=== PATIENT | male | born 1950 | race Caucasian/White ===

== ENCOUNTER → 2020-05-16 | Outpatient (CLI) | payer MEDICARE, SELFPAY | END | disposition home or self-care (01) | LOC: LABSPEC 14:34 | PROVIDERS: PCP Internal Medicine; Referring Provider Family Medicine; Visit Provider Family Medicine | DX: Z03.818 Encounter for observation for suspected exposure to other biological agents ruled out (principal) | CPT/HCPCS: 87635; U0003 ==

== ENCOUNTER → 2020-05-30 13:11 | Outpatient (CLI) | payer MEDICARE, SELFPAY | PROVIDERS: Referring Provider Family Medicine; Visit Provider Family Medicine | DX: Z11.59 Encounter for screening for other viral diseases (principal) | CPT/HCPCS: 87635; U0003 ==

== ENCOUNTER → 2020-06-13 | Outpatient (CLI) | payer MEDICARE, SELFPAY | END | disposition home or self-care (01) | LOC: LABSPEC 12:41 | PROVIDERS: Referring Provider Family Medicine; Visit Provider Family Medicine | DX: Z03.818 Encounter for observation for suspected exposure to other biological agents ruled out (principal) | CPT/HCPCS: 87635; U0003 ==

== ENCOUNTER → 2020-06-27 | Outpatient (CLI) | payer MEDICARE, SELFPAY | END | disposition home or self-care (01) | LOC: LABSPEC 10:52 | PROVIDERS: Referring Provider Family Medicine; Visit Provider Family Medicine | DX: Z03.818 Encounter for observation for suspected exposure to other biological agents ruled out (principal) | CPT/HCPCS: 87635; U0003 ==

== ENCOUNTER → 2020-07-11 | Outpatient (CLI) | payer MEDICARE, SELFPAY | END | disposition home or self-care (01) | LOC: LABSPEC 13:26 | PROVIDERS: Referring Provider Family Medicine; Visit Provider Family Medicine | DX: Z03.818 Encounter for observation for suspected exposure to other biological agents ruled out (principal) | CPT/HCPCS: 87635; U0003 ==

== ENCOUNTER → 2020-10-31 13:49 | Outpatient (CLI) | payer MEDICARE, OTHER, SELFPAY ==
--- NOTE | 2020-10-31 13:53 | CT_ITS ---
STUDY: CT SCAN LOWER EXTREMITY LEFT.VALARIE REASON FOR EXAM: Male, 70 years old. VARUS DEFORMITY, NOT ELSEWHERE CLASSIFIED, L KNEE RADIATION DOSAGE (If Supplied By Facility): CTDIvol = ( 18.07 ) mGy, DLP = ( 1881.66 ) mGycm. Individualized dose optimization techniques were used for this CT.? TECHNIQUE: Multiple axial tomographic images of the left hip, left knee and left ankle joints were obtained. Coronal and sagittal reconstruction were obtained as well. COMPARISON: None. FINDINGS: Imaging of the left hip joint was obtained. Mild degree of joint space narrowing. There is a marked degree of disc space narrowing at the L4-L5 level with a grade 1 anterior listhesis of L4 on L5 with spondylolysis of the pars interarticularis of the L5 vertebrae. Imaging of the knee joint was obtained. There is a moderate to marked degree of medial joint space narrowing. Mild degree of patellofemoral joint space narrowing with degenerative spur formation. Imaging of the ankle joint was obtained. The ankle mortise is intact. No significant abnormality is seen. CT/Extremity Lower without Contra IMPRESSION: Moderate to marked degree of the medial joint space narrowing of the knee joint as well as mild degree of patellofemoral degenerative changes. Electronically Signed: Uzair Still MD at 14:42 EST , Service support ,
== END ==
PROVIDERS: PCP Internal Medicine; Referring Provider Specialist; Visit Provider Specialist
DX: M21.162 Varus deformity, not elsewhere classified, left knee (principal)
CPT/HCPCS: 73700

== ENCOUNTER → 2020-11-07 09:23 | Outpatient (CLI) | payer MEDICARE, OTHER, SELFPAY ==
--- NOTE | 2020-11-07 09:26 | EKG12_ITS ---
Test Reason : PREOP Blood Pressure : / mmHG Vent. Rate : 084 BPM Atrial Rate : 084 BPM P-R Int : 162 ms QRS Dur : 092 ms QT Int : 378 ms P-R-T Axes : 070 044 051 degrees QTc Int : 446 ms Normal sinus rhythm Low voltage QRS Borderline ECG Confirmed by SANTIAGO LINDSEY, ROSIO ([id number]), editorial project manager MARTIN HINOJOSA ([id number]) on 11/11/2020 11:01:44 A M Referred By: Nitish Martinez Confirmed By:EVE HENDERSON MD
[2020-11-07 10:05] LABS: Absolute Lymphocyte Count 1.07 X10^3/uL (0.83-4.51); Absolute Neutrophil Count 3.9 X10^3/uL (2.0-7.7); Basophil# 0.02 X10^3/uL; Basophil% 0.4 % (0-1); Eosinophil# 0.12 X10^3/uL; Eosinophils% 2.2 % (0-5); Hemoglobin 14.2 g/dL (13.0-16.5); Lymphocyte # 1.07 X10^3/ul (4.0); Lymphocyte % 19.3 % (19-41); Mean Corpuscular Hgb 29.2 pg (27.0-32.0); Mean Corpuscular Volume 88.3 fL (80-94); Monocyte# 0.45 X10^3/uL; Monocyte% 8.1 % (0-10); NRBC Flagged by Analyzer 0 % (0-5); Neutrophil # 3.86 X10^3/uL (2.7-7.7); Neutrophil % 69.6 % (47-70); Platelet Count 198 K/mm3 (150-450); RBC Distribution Width CV 14.6 % (11.6-14.6); RBC Distribution Width SD 46.6 fl (35.1-43.9); Red Blood Count 4.87 M/mm3 (4.6-6.2); White Blood Count 5.5 K/mm3 (4.4-11.0)
[2020-11-07 10:48] LABS: Anion Gap 3 (5-15); BUN 20 mg/dL (7-18); BUN/Creat Ratio 16.3 RATIO (10-20); Calcium,Total 8.9 mg/dL (8.5-10.1); Chloride 106 mmol/L (98-107); Creatinine, Serum 1.23 mg/dL (0.70-1.30); EST Glomerular Filtration Rate 62 mL/min (>60); Est Glom Filt Rate - Afr Amer 75 mL/min (>60); Glucose 88 mg/dL (74-106); Potassium 3.5 mmol/L (3.5-5.1); Sodium Level 141 mmol/L (136-145)
== END ==
PROVIDERS: PCP Internal Medicine; Referring Provider Physician Assistant Surgical; Visit Provider Physician Assistant Surgical
DX: Z01.810 Encounter for preprocedural cardiovascular examination (principal); Z01.818 Encounter for other preprocedural examination
CPT/HCPCS: 36415; 80048; 85025; 93005

== ENCOUNTER → 2020-12-06 14:28 | Outpatient (CLI) | payer MEDICARE, OTHER, SELFPAY ==
--- NOTE | 2020-12-06 14:30 | VDLE_ITS ---
Reason For Study: Pain RIGHT LEFT CFV is compressible, spontaneous, phasic, GSV is normal. competent and demonstrates normal CFV is compressible, spontaneous, phasic, augmentation. competent, and demonstrates normal Procedure augmentation. Exam performed in department. FV is compressible, spontaneous, phasic, This is a venous duplex using B-mode, color competent and demonstrates normal flow and spectral Doppler. augmentation. A preliminary report was called and/or faxed POP V is compressible, spontaneous, phasic, to Dr. Valiente. competent and demonstrates normal augmentation. T/P Trunk is compressible. PTV is compressible. LT PerV is compressible. VL/Venous Duplex US, Unilateral Interpretation Summary There is no evidence of left lower extremity deep vein thrombosis. Normal flow patterns right common femoral vein Ordering Physician: Chaitanya Valiente Referring Physician: Jaycob Gruber Performed By: Yaima oHrta RDCS, RVT
== END ==
PROVIDERS: PCP Internal Medicine; Referring Provider Specialist; Visit Provider Specialist
DX: M79.662 Pain in left lower leg (principal)
CPT/HCPCS: 93971

== ENCOUNTER 2025-07-11 10:37 | Emergency (ER) | payer MEDICARE, OTHER, SELFPAY ==
[2025-07-11 10:38] VITALS: BP 152/92; PULSE 74; RESP 18; TEMP 37.2; O2SAT 100; BMI 23.7
[2025-07-11 11:54] VITALS: BP 134/84; PULSE 65; RESP 18; O2SAT 100
--- NOTE | 2025-07-11 11:58 | ED.RN ---
had episode of numbness to RLE in triage but pt reports was from crossing legs. denies now.
--- NOTE | 2025-07-11 12:11 | CT_ITS ---
PROCEDURE: BRAIN/HEAD WITHOUT CONTRAST 07/11/2025 REASON FOR EXAM: HEADACHE TECHNIQUE: Procedure Code: CTBR Modality: CT Procedure: BRAIN/HEAD WITHOUT CONTRAST Coronal and Sagittal reconstruction series were provided. One or more dose reduction techniques were used (e.g., Automated exposure control, adjustment of the mA and/or kV according to patient size, use of iterative reconstruction technique. RADIATION DOSE SUMMARY: CTDlvol: 44.99 mGy DLP: 796.11 mGycm COMPARISON: None FINDINGS: Brain: Within normal limits for age. Tiny lucency in the insular cortex of the right temporal lobes suggestive of focal lacune. The age of which can not be determined at this time. CSF Spaces: Mild generalized cerebral atrophy Sinuses/Mastoids: Clear at visualized levels Bones: Unremarkable CT/Brain/Head without Contrast IMPRESSION: Tiny lacune seen in the insular cortex of the right temporal lobe posteriorly. The age of this can not be determined since there are no prior study available for comparison. Reading Location: [place] [id number]
--- NOTE | 2025-07-11 12:11 | EKG12_ITS ---
Test Reason : Blood Pressure : */* mmHG Vent. Rate : 68 BPM Atrial Rate : 75 BPM P-R Int : 188 ms QRS Dur : 90 ms QT Int : 416 ms P-R-T Axes : 66 1 18 degrees QTcB Int : 442 ms Sinus rhythm with Premature atrial complexes Otherwise normal ECG Confirmed by SANTIAGO LINDSEY, ROSIO ([id number]), video editor WHITNEY ROMERO ([id number]) on 07/16/2025 8:24:16 AM Referred By: Confirmed By: ROSIO HENDERSON MD
--- NOTE | 2025-07-11 12:11 | CT_ITS ---
PROCEDURE: CTA HEAD AND NECK W/ CONTRAST 07/11/2025 REASON FOR EXAM: HEADACHE TECHNIQUE: Procedure Code: CTCTA.HDNCK Modality: CT Procedure: CTA HEAD AND NECK W/ CONTRAST Multiplanar Sagittal and Coronal images were obtained. 3D post processing was performed CONTRAST: Isovue 3 7 VOLUME: 100 mL One or more dose reduction techniques were used (e.g., Automated exposure control, adjustment of the mA and/or kV according to patient size, use of iterative reconstruction technique). RADIATION DOSE SUMMARY: CTDlvol: 25.3 mGy DLP: 703.92 mGycm COMPARISON: None FINDINGS: Aortic Arch: Normal size and branching pattern. Mild atherosclerotic plaque. Brachiocephalic and Subclavians: Unremarkable RIGHT Carotid: Right CCA: Unremarkable. Right ICA: Unremarkable. Right ECA: Unremarkable. LEFT Carotid: Left CCA: Unremarkable. Left ICA: Unremarkable. Left ECA: Unremarkable. Vertebrals: Codominant. Arise from the subclavians. Both vertebrals form the basilar. RIGHT Vertebral: Unremarkable. LEFT Vertebral: Unremarkable. Anatomy: [place] anatomy is normal. Aneurysm or avm: No intracranial aneurysms or large vascular malformations are identified. Anterior cerebral arteries: Unremarkable: Middle cerebral arteries: Unremarkable. Basilar artery: Unremarkable. Posterior cerebral arteries: Unremarkable. Other major branches of the posterior circulation: Unremarkable. Major venous structures: Unremarkable. Other findings: Neck: Lungs: Bones: CT/CTA Head AND Neck W/ Contrast IMPRESSION: Unremarkable examination. Reading Location: [place] [id number]
[2025-07-11] MEDS: 0.9% Normal Saline (1000mL) 1,000 ML 999 ML IV (12:21)
--- NOTE | 2025-07-11 12:38 | EX.ED.DYSGE1 ---
HPI History of Present Illness Chief Complaint: Headache Narrative Narrative: Patient is a 74-year-old male who presents to the emergency department with a chief complaint of headache. He states that this started about 2 days ago and states that he thought about coming in yesterday however his pain got better and then they returned today prompting him to come here for further evaluation management. He states that he is been taking Tylenol and ibuprofen which has helped his symptoms. He states that he has never had a headache like this before and was concerned prompting him here to the emergency department to be further evaluated. He states that the headache came on gradually and progressively worsened. Denies any head injuries or trauma. Denies any blood thinning medications. [facility] Medical History Headache Home Medications Medication Instructions Recorded Last Taken Type NK 07/11/25 Unknown History Allergy/AdvReac Type Severity Reaction Status Date / Time No Known Allergies Allergy Verified 07/11/25 10:38 Social History Smoking Status: Never smoker ROS ROS ED ROS Narrative Constitutional: Denies any fevers, chills complains of headache as noted above Eyes: Denies double vision blurry vision Cardiovascular: Denies chest pain Respiratory: Denies shortness of breath Abdomen: Denies abdominal pain nausea vomit diarrhea : Denies any urine symptoms Neurological: Denies any numbness, weakness, tingling Musculoskeletal: Denies back pain Skin: Denies any rashes or lesions EXAM Physical Exam Narrative Exam Narrative: General: Patient was lying bed rest comfortably did not appear to be acute distress Head: Atraumatic, normocephalic Eyes: PERRL bilaterally, EOMI bilateral, no conjunctival injection noted Neck: Soft, supple, trachea midline Cardiovascular: Regular rate and rhythm Respiratory: Clear to auscultation bilaterally Abdomen: Soft, nondistended, nontender to palpation Extremities: +5/5 strength noted in the bilateral lower extremities Neurological: Patient following commands knew that he was at [facility] year is 2024 NIH is 0 GCS 15 Skin: Warm, dry, tact no rashes or lesions noted Const Vital Signs: 07/11/25 10:38 07/11/25 11:54 Temperature 98.9 F Temperature Source Oral Pulse Rate 74 65 Respiratory Rate 18 18 Blood Pressure 152/92 H 134/84 H Blood Pressure Mean 112 100 Pulse Ox 100 100 Oxygen Delivery Method Room Air Room Air MDM MDM MDM Narrative Medical decision making narrative: Patient is a 74-year-old male who presented to the emergency department with chief complaint of headache. On the differential diagnose includes Melamin to aneurysm, intracranial hemorrhage, tension headache, close headache migraine headache. Once workup is obtained and reviewed he will be reevaluated. Patient given IV fluids Tylenol and Reglan. Patient CBC reviewed showed no evidence of leukocytosis white blood count was noted be 4.5, hemoglobin 13, platelet count of 193. Sodium was 130, potassium low 3.6, creatinine was 1.19. Patient AST and ALT were [address] head brain without contrast showed a tiny lacunar infarct in the insular cortex of the right temporal lobe posteriorly age-indeterminate do not have anything to compare to. Patient CTA head and neck reviewed which showed no evidence of large vessel occlusion. Patient EKG showed sinus rhythm with PACs noted with a rate of 60 bpm CO interval 188 Given that these headaches are worse than his usual with this new finding of a evidence of stroke on his CT scan will discuss case with hospitalist for admission. Patient was evaluated by hospitalist Dr. Wagner and after their discussion patient would prefer to go home at this point in time and follow-up with his doctor in the outpatient setting. Hospitalist will prescribe medications for his headache. They state that it is no longer recommended to do anything for the lacunar infarct per neurology that they have been told in the past. Patient otherwise has no other symptoms and states that his headache is improved after the migraine cocktail given down here in the emergency department. He was advised to return with worsening symptoms or any other concerns he is agreeable this plan as well as significant other at bedside all question concerns answered is discharged home in stable condition Lab Data Labs: Laboratory Results - last 24 hr 07/11/25 11:55 WBC 4.5 RBC 4.37 L Hgb 13.0 Hct 38.2 L MCV 87.4 MCH 29.7 MCHC 34.0 RDW Std Deviation 44.1 H RDW Coeff of Delmy 13.9 Plt Count 193 MPV 8.9 Immature Gran % (Auto) 0.200 Neut % (Auto) 74.2 H Lymph % (Auto) 16.9 L Reeves % (Auto) 7.6 Eos % (Auto) 0.9 Baso % (Auto) 0.2 Absolute Neuts (auto) 3.3 Absolute Lymphs (auto) 0.75 L Nucleated RBC % 0 Sodium 138 Potassium 3.6 Chloride 100 Carbon Dioxide 26.9 Anion Gap 11 BUN 32 H Creatinine 1.19 Estim Creat Clear Calc 54.46 Est GFR (MDRD) Non-Af 64 BUN/Creatinine Ratio 26.5 H Glucose 114 H Calcium 9.1 Total Bilirubin 1.17 AST 17 ALT 13 Alkaline Phosphatase 60 Total Protein 8.6 H Albumin 3.7 Globulin 5.0 H Albumin/Globulin Ratio 0.7 L Radiography Diagnostic Testing: Clinical Impression(s) from Imaging Studies Brain CT 07/11/25 12:11 IMPRESSION: Tiny lacune seen in the insular cortex of the right temporal lobe posteriorly. The age of this can not be determined since there are no prior study available for comparison. Reading Location: [facility] Head/Neck CTA 07/11/25 12:11 IMPRESSION: Unremarkable examination. Reading Location: [facility]1 Discharge Plan Triage Chief Complaint: Headache ED Provider: Jose Fish Dx/Rx/DC Orders Clinical Impression: Headache, Lacunar infarction, History of tremor Prescriptions: No Action NK Primary Care Provider: Jaycob Gruber Referrals: Jaycob Gruber MD [Primary Care Provider, Internal Medicine] Activity Restrictions/Additional Instructions: Follow-up with your doctor in the outpatient setting. Return with worsening symptoms or other concerns. Take prescriptions that were sent to your pharmacy as prescribed for your headache you can also use Tylenol and ibuprofen when you do this you can rotate Tylenol and ibuprofen [id number] taking something every 3 hours for pain max dose Tylenol in 24 hours 4000 mg max dose of ibuprofen in 24 hours 3200 mg. Print Language: Nepali Disposition Disposition: Home, Self Care D/C Safety Score for UGIB Assessment [place] Bleeding Score (GBS): Stratifies upper GI bleeding patients who are "low-risk" and candidates for outpatient management. Sex: Male Hemoglobin, BUN, Recent Vital Signs: Hgb 13.0 g/dL (13.0-16.5) 11/12/25 11:55 BUN 32 mg/dL (4-19) H 07/11/25 11:55 Pulse Rate 65 Blood Pressure 134/84 Total Risk Score: 3 Score Interpretation: Score of 0: A GBS of 0 is a “Low Risk” GI bleed, and is highly sensitive (99.6% in a 2007 retrospective study) for predicting which patients did not require any “medical intervention”: blood transfusion, endoscopy, or surgery. This was confirmed in a 2009 [facility] study where patients with a score of 0 were actually discharged and had no GI bleeding mortality at 6 month followup Score above 0: A GBS greater than zero suggests a “High Risk” GI bleed that is likely to require “medical intervention”: transfusion, endoscopy, or surgery. A higher GBS also correlated with a higher likelihood of needing intervention Scores >/= 6 are associated with >50% risk of needing intervention D/C Safety Score for LGIB Assessment Assessment Tool: Readmission and adverse event risk in patients with acute lower GI bleeding. Age, in years: >/= 70 Sex: Male Hemoglobin and Recent Vital Signs: Hgb 13.0 g/dL (13.0-16.5) 07/11/25 11:55 Pulse Rate 65 07/11/25 11:54 Blood Pressure 134/84 07/11/25 11:54 Probability of safe discharge: 98% Total Risk Score: 3 Score Interpretation: Probability Percentage of safe discharge (absence of rebleeding, blood transfusion, therapeutic intervention, 28 day readmission, or ) Score of 8 or below: Consider discharge, with appropriate precautions. Score of 9 or above: Discharge NOT recommended. Consider admission with further workup and resuscitation as necessary.
[2025-07-11 12:39] LABS: Hematocrit 38.2 % (40-54); Hemoglobin 13.0 g/dL (13.0-16.5); Immature Granulocytes Count 0.010 X10^3/uL (0.0-0.0); Mean Corp Hgb Conc 34.0 g/dL (32-36); Mean Corpuscular Volume 87.4 fL (80-94); Mean Platelet Vol. 8.9 fl (6.2-12.0); NRBC Flagged by Analyzer 0 % (0-5); Platelet Count 193 K/mm3 (150-450); RBC Distribution Width CV 13.9 % (11.6-14.6); RBC Distribution Width SD 44.1 fl (35.1-43.9); Red Blood Count 4.37 M/mm3 (4.6-6.2); White Blood Count 4.5 K/mm3 (4.4-11.0)
[2025-07-11 12:43] LABS: AST(SGOT) 17 U/L (<=37); Alanine Aminotransfer ALT/SGPT 13 U/L (<=46); Albumin, Serum 3.7 g/dL (3.4-4.8); Alkaline Phosphatase 60 U/L (40-129); Anion Gap 11 (5-15); BUN 32 mg/dL (4-19); BUN/Creat Ratio 26.5 RATIO (10-20); Calcium,Total 9.1 mg/dL (7.6-11.0); Carbon Dioxide 26.9 mmol/L (21.0-32.0); Chloride 100 mmol/L (98-108); Estimated Creatinine Clearance 54.46 ml/min (50-250); Globulin 5.0 g/dL (2.2-4.2); Glucose 114 mg/dL (70-99); Potassium 3.6 mmol/L (3.3-5.1)
--- NOTE | 2025-07-11 14:55 | PN.HOSP_ITS ---
Hospitalist Note Patient was seen and examined today at the request of emergency medicine (Dr. Fish), he complained of a headache, headache started approximately 2 days ago and he was taken [id number] medications at home and in fact he took a tramadol that he had at home and this helped. Patient denies any visual disturbances or light sensitivity, he states the headache starts in the back of his occipital area and if he gets severe travels around to the front. He has no history of migraine cephalgia, he does not complain of any speech difficulties or focal weakness. Workup in the emergency room included a CT of the brain which showed a small lacunar infarct age unknown, labs were unremarkable. I examined the patient and he stated that he felt "90% better" since he has had medications in the emergency room. I gave the patient a choice of being placed into observation status overnight and receiving further medications and possibly getting an MRI of the brain or he could go home and I could call in some Fioricet for him until he follows up with his physician next week. Patient's was in the room during the time of my examination and discussion with him. Patient decided that he would like to go home and I discussed this with Dr. Fish and he was okay with this. Fioricet No. 20 1-2 every 6 hours was called into [facility] in [place], patient may take ibuprofen with this if desired. He was instructed to follow-up with his PCP next week.
[2025-07-11 15:01] VITALS: BP 116/72; PULSE 68; RESP 16; TEMP 36.3; O2SAT 98
== END 2025-07-11 15:37 | disposition home or self-care (01) ==
PROVIDERS: Emergency Provider Emergency Medicine; PCP Internal Medicine; Visit Provider Emergency Medicine
DX: R51.9 Headache, unspecified (principal)
CPT/HCPCS: 70450; 70496; 70498; 80053; 85025; 93005; 96361; 96374; 96376; 99283; Q9967